=== PATIENT | male | born 1985 | race Two or more races ===

== ENCOUNTER 2022-03-26 12:29 | Emergency (ER) | payer MEDICAID ==
[~2022-03-26] VITALS: Ht 157.5 cm; Wt 72.6 kg
--- NOTE | 2022-03-26 13:00 | NUR ---
Dr. Maynard at bedside
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
--- NOTE | 2022-03-26 13:02 | NUR ---
TO ER BED 17 FOR MD KRAMER
[2022-03-26] MEDS ORDERED: HYDROCODONE/APAP 5/325MG TABLET ONE (13:58)
[2022-03-26] MEDS ORDERED: CYCLOBENZAPRINE 10 MG TABLET ONE (13:58)
[2022-03-26] MEDS ORDERED: ONDANSETRON 4 MG TAB.RAPDIS ONE (13:59)
[2022-03-26] MEDS ORDERED: CYCLOBENZAPRINE 10 MG TABLET PO ONE (14:00)
[2022-03-26] MEDS ORDERED: HYDROCODONE/APAP 5/325MG TABLET PO ONE (14:00)
[2022-03-26] MEDS ORDERED: ONDANSETRON HCL 4 MG/5 ML SOLUTION PO ONE (14:00)
[2022-03-26] MEDS ORDERED: ONDA4TAB5 PO (16:10)
[2022-03-26] MEDS ORDERED: CYCL5TAB PO (16:10)
[2022-03-26] MEDS ORDERED: HYDR-4209 PO (16:10)
[2022-03-26] MEDS ORDERED: IBUP-1955 PO (16:10)
[2022-03-26 17:00] VITALS: BP 138/79
== END 2022-03-26 17:20 | disposition home or self-care (01) ==
LOC: ER 12:33
DX: S06.0X0A Concussion without loss of consciousness, initial encounter (principal); S16.1XXA Strain of muscle, fascia and tendon at neck level, initial encounter; M54.50 Low back pain, unspecified; V49.59XA Passenger injured in collision with other motor vehicles in traffic accident, initial encounter; Y93.89 Activity, other specified; Y92.413 State road as the place of occurrence of the external cause; Y99.8 Other external cause status
CPT/HCPCS: 99284; 72125; 70450; Q0162

== ENCOUNTER 2023-12-03 11:01 | Emergency (ER) | payer MEDICAID, OTHER ==
[~2023-12-03] VITALS: Ht 154.9 cm; Wt 65.8 kg
[~2023-12-03 11:01] MED LIST: CYCL5TAB PO; HYDR-4209 PO; IBUP-1955 PO; ONDA4TAB5 PO
[2023-12-03 11:42] LABS: BASOPHILS % (AUTO) 0.8 % (0.0-2.0); EOSINOPHILS # (AUTO) 0.1 K/uL (0.0-0.7); EOSINOPHILS % (AUTO) 1.1 % (0.0-6.0); HEMATOCRIT 47 % (39-51); HEMOGLOBIN 15.9 g/dL (13.5-17.5); LYMPHOCYTES # (AUTO) 1.9 K/uL (0.8-4.8); LYMPHOCYTES % (AUTO) 36.7 % (20.0-44.0); MEAN CORPUSCULAR HEMOGLOBIN 30 PG (26.0-33.0); MEAN CORPUSCULAR HGB CONC 34 g/dl (31.0-36.0); MEAN CORPUSCULAR VOLUME 90 fL (80-96); MONOCYTES # (AUTO) 0.6 K/uL (0.1-1.30); MONOCYTES % (AUTO) 10.7 % (2.0-12.0); NEUTROPHILS # (AUTO) 2.6 K/uL (1.8-8.9); NEUTROPHILS % (AUTO) 50.7 % (43.0-81.0); PLATELET COUNT (AUTO) 353 K/uL (150-450); RED BLOOD CELL COUNT(AUTO) 5.26 MIL/uL (4.5-6.0); WHITE BLOOD COUNT (AUTO) 5.2 K/uL (4.3-11.0)
[2023-12-03 11:57] LABS: CREATININE 0.7 mg/dL (0.6-1.3); POTASSIUM 4.2 mmol/L (3.5-5.1)
[2023-12-03 12:03] LABS: ALBUMIN 3.8 g/dL (3.4-5.0); BILIRUBIN,DIRECT 0.1 mg/dL (0.0-0.2); BILIRUBIN,TOTAL 0.2 mg/dL (0.2-1.0); TOTAL PROTEIN, SERUM 7.6 g/dL (6.4-8.2)
[2023-12-03 12:28] VITALS: BP 120/75; TEMP 98.7; O2SAT 98
== END 2023-12-03 12:28 | disposition home or self-care (01) ==
LOC: ER 11:21
DX: K62.5 Hemorrhage of anus and rectum (principal)
CPT/HCPCS: 36415; 80048-TC; 80076-TC; 83690-TC; 85025-TC